=== PATIENT | male | born 1945 | race Caucasian/White ===

== ENCOUNTER 2017-10-22 13:45 | Outpatient (RCR) | payer MEDICARE, OTHER ==
[2017-08-17 13:54] VITALS: BMI 34.9
--- NOTE | 2017-09-17 17:13 | PT INITIAL EVALUATION ---
MEDICAL DIAGNOSIS: L shoulder pain, scapular body fracture TREATMENT DIAGNOSIS: same DATE OF ONSET: 08/16/17 SUBJECTIVE: Jose Hernández presents to physical therapy status post L shoulder pain ; scapular body fracture that occurred on the July in an accident in which he fell off a 2 step ladder posteriorly onto a staircase. He states that Dwain Trinidad MD placed him on lifting restrictions and no shooting his shoot gun for two more weeks. He reports that the pain is getting better each day. Furthermore, he reports that he had a lot of bruising around his hip, trunk, and leg primarily on the L side and states that his shoulder does not have any pain at rest. He does report that his posterior hip has 1/10 pain/soreness from all the residual bruising and contusions. He states that the they performed a CT scan and found scapulae fracture along with L2-L3 transverse fractures. He reports that when he performs extreme end ranges of abduction, flexion, and extension his pain increases to 2/10. He states that his pain decreases with heat and Ibuprofen. Overall, he states that it is feeling better each week and reports that the fracture is healing correctly. Pain location is L anterior shoulder, inferior to medial scapulae and described as achy. REHAB PROBLEM LIST: Increased Pain Decreased ROM Decreased Strength Decreased Endurance Decreased Function Decreased ADL's PREVIOUS MEDICAL HISTORY: See EMR OCCUPATION: Retired OBJECTIVE: Posture: He demonstrated B rounded shoulders, increased thoracic kyphosis, and decreased lumbar lordosis. ROM: AROM of L shoulder: 140 degrees flexion, 90 degrees abduction, 130 degrees of scaption, ER: 40 degrees, IR: 90 degrees. PROM of L shoulder: 155 degrees flexion, 110 degrees of abduction, 60 degrees of ER, 90 degrees of IR. Strength: Weak and painful with abduction, scaption, and ER. painful and moderate strength with flexion and IR. Palpation: TTP: medial border below spine of scapulae to inferior scapulae, anterior shoulder: LHB, insertional points of supraspinatus and subscapularis Mobility: Independent Gait: glenohumeral rhythm appeared to be normal with current motion ASSESSMENT: Jose will benefit from skilled physical therapy addressing the listed impairments to return him to prior level of function. Short Term Goals 2 weeks: Pt will improve PROM of L shoulder flexion, abduction, extension, IR, ER, and scaption to improve function and QOL. 4 weeks: Pt will improve AAROM of L shoulder flexion, abduction, extension, IR , ER, and scaption to improve function and QOL. 6 weeks: Pt will improve AROM of L shoulder flexion, abduction, extension, IR, ER, and scaption with 0/10 pain to improve function and QOL. 8 weeks: Pt will improve periscapular and RTC strength from baseline to 4/5 or greater with 0/10 pain to improve function and QOL. Patient's Goals improve motion and return to pheasant hunting PLAN: Patient to be seen for Manual Therapy/STM/MET Strengthening/condition Ice/Heat Range of Motion Spinal Stabilization Work Hardening/Cond Stretching Iontophoresis Neuromuscular Re-ed Closed Chain Program Electrical Stim Home Exercise Program Therapeutic Activities 2-3x/week for 2 Months If you have any questions, comments, or concerns about this report or plan, please contact me at . Thank you, Guillermo Rodriguez, PT, DPT RICCOD
[~2017-10-22 13:45] MED LIST: ALBU8.5H12 IH; AML5 PO; AMLO-104 PO; ASPI-717 PO; ATOR40TA24 PO; CEP500 PO; CLOP75TA43 PO; DILT360C26 PO; DOXA4TAB57 PO; ESOM40CA42 PO; EZET10TA41 PO; EZET1TAB86 PO; FLUT1DIS28 IH; GABA-503 PO; HYDR-393 PO; HYDR12.558 PO; IBUP800T37 PO; INSU100C14 SQ; IRBE300T11 PO; ISO10 PO; LANI SC; LOSA-165 PO; METF-409 PO; METO-233 PO; METO25TA23 PO; NIT4 SL; NOVOLOG SQ; OXYC5CAP21 PO; OXYGENHOME INH; SEPTRA DS; SIL20T TOP; SIM10 PO; SIME80TA PO
--- NOTE | 2017-10-22 14:40 | PT PLAN OF CARE ---
Physician: Dwain Trinidad MD Patient is being seen: 2-3x/week Therapist: Guillermo Rodriguez, PT, DPT Medical Diagnosis: L shoulder pain, scapular body fracture Treatment Diagnosis: same Date of Onset: 08/16/17 Date of Initial Evaluation: 09/16/17 Date patient was last seen: 10/22/17 Number of treatments: 10 Number of cancellations/No shows: 0 INTERVENTIONS: Manual Therapy/STM/MET Strengthening/condition Ice/Heat Range of Motion Spinal Stabilization Work Hardening/Cond Stretching Iontophoresis Neuromuscular Re-ed Closed Chain Program Electrical Stim Home Exercise Program Therapeutic Activities GOALS: 2 weeks: Pt will improve PROM of L shoulder flexion, abduction, extension, IR, ER, and scaption to improve function and QOL. MET 4 weeks: Pt will improve AAROM of L shoulder flexion, abduction, extension, IR , ER, and scaption to improve function and QOL. MET 6 weeks: Pt will improve AROM of L shoulder flexion, abduction, extension, IR, ER, and scaption with 0/10 pain to improve function and QOL. MET 8 weeks: Pt will improve periscapular and RTC strength from baseline to 4/5 or greater with 0/10 pain to improve function and QOL. MET PATIENT'S GOAL: improve motion and return to pheasant hunting: MET Status of Patient's Goals: MET Patient Compliance: Excellent Prognosis: Good Reasons for discontinuing therapy: This is a discharge note for Jose Hernández. He reports that he is doing well. He denies any pain. He states that he has been performing his HEP without any difficulties or problems. He progressed well within PT with the following improvements: full PROM and AROM of L shoulder into flexion, abduction, extension, IR, and ER, increased RTC and periscapular strength, and return to prior level of function. He has met all of his goals. As a result, he will be discharged from PT to [facility]. Posture: He demonstrated B rounded shoulders, increased thoracic kyphosis, and decreased lumbar lordosis. ROM: AROM of L shoulder: 175 degrees flexion, 175 degrees abduction, 175 degrees of scaption, ER: 90 degrees, IR: 90 degrees. PROM of L shoulder: 175 degrees flexion, 175 degrees of abduction, 90 degrees of ER, 90 degrees of IR. Strength: Strong and painless with abduction, scaption, flexion, IR, and ER. 5/ 5 Palpation: No longer TTP. If you have any questions, please contact me at [phone]. Thank you, Guillermo Rodriguez, PT, DPT MTDD
== END 2017-10-22 18:00 | disposition home or self-care (01) ==
LOC: PT 13:45
PROVIDERS: ATTEND Orthopaedic Surgery
DX: S42.112A Displaced fracture of body of scapula, left shoulder, initial encounter for closed fracture (principal); M25.512 Pain in left shoulder; S20.229A Contusion of unspecified back wall of thorax, initial encounter; S70.02XA Contusion of left hip, initial encounter; S70.12XA Contusion of left thigh, initial encounter; W11.XXXA Fall on and from ladder, initial encounter
CPT/HCPCS: 97010; 97110; 97140; 97161; G0283